=== PATIENT | male | born 1945 | race Caucasian/White ===

== ENCOUNTER 2019-06-26 10:21 | Emergency (ER) | payer OTHER ==
--- NOTE | 2019-06-26 11:39 | RAD REPORT ---
EXAM DESCRIPTION: CT - Head Brain Wo Cont - 06/26/2019 11:05 am CLINICAL HISTORY: Headache, history of fall with trauma to the left frontal and side of the head, samira carter has pain and pressure at the left, event happened 2 months earlier with persistent symptoms COMPARISON: None. TECHNIQUE: Axial 5 mm thick images of the head were obtained without IV contrast. All CT scans are performed using dose optimization technique as appropriate and may include automated exposure control or mA/KV adjustment according to patient size. FINDINGS: No acute or subacute intracranial hemorrhage process. No edema or shift of midline structu res. The patient has a mild underlying atrophy and chronic ischemic change. 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 No acute infarction. No cortical edema or sulcal effac ement. No abnormal extra-axial fluid collections. Ventricles are in proportion to the minimal amount of volume loss. Arterial and physiologic calcifications are present. Mastoid air cells and visualized portions of the paranasal sinuses are clear. No acute bony findings. IMPRESSION: No hemorrhage or other acute intracranial finding seen. Patient has mild atrophy and chr onic ischemic change.
--- NOTE | 2019-06-26 12:05 | ER ---
Nurse's Notes [facility] Name: Rogelio Machado Age: 74 yrs Sex: Male : 1945 Arrival Date: 06/26/2019 Time: 10:29 Bed 17 Private MD: Diagnosis: Postconcussional syndrome;Headache Presentation: 06/26 10:27 Presenting complaint: Patient states: Headaches for 2 months after falling and hitting head. Transition of care: patient was not received from another setting of care. Onset of symptoms was April 2019. Risk Assessment: Do you want to hurt yourself or someone else? Patient reports no desire to harm self or others. Initial Sepsis Screen: Does the patient meet any 2 criteria? No. Patient's initial sepsis screen is negative. Does the patient have a suspected source of infection? No. Patient's initial sepsis screen is negative. Care prior to arrival: None. 10:27 Method Of Arrival: Ambulatory aj 10:27 Acuity: [place] 4 aj Triage Assessment: 10:28 General: Appears in no apparent distress. comfortable, Behavior is calm, cooperative, aj appropriate for age. Pain: Denies pain. Neuro: Level of Consciousness is awake, alert, obeys commands, Oriented to person, place, time, situation, Appropriate for age. Respiratory: Airway is patent Respiratory effort is even, unlabored, Respiratory pattern is regular, symmetrical. Derm: Skin is intact, is healthy with good turgor, Skin is pink, warm \T\ dry. normal. Historical: - Allergies: 10:28 No Known Allergies; aj - Immunization history:: Adult Immunizations up to date. - Social history:: Smoking status: Patient/guardian denies using tobacco. - Ebola Screening: : Patient negative for fever greater than or equal to 101.5 degrees Fahrenheit, and additional compatible Ebola Virus Disease symptoms Patient denies exposure to infectious person Patient denies travel to an Ebola-affected area in the 21 days before illness onset No symptoms or risks identified at this time. Screenin:00 Abuse screen: Denies threats or abuse. Denies injuries from another. Nutritional hb screening: No deficits noted. Tuberculosis screening: No symptoms or risk factors identified. Fall Risk None identified. Assessment: 10:45 General: Appears in no apparent distress. Behavior is calm, cooperative. Pain: Pain hb currently is 5 out of 10 on a pain scale. Neuro: Level of Consciousness is awake, alert, obeys commands, Oriented to person, place, time, situation, Pupils are PERRLA, Reports headache. Cardiovascular: Capillary refill < 3 seconds Patient's skin is warm and dry. Respiratory: Airway is patent Respiratory effort is even, unlabored, Respiratory pattern is regular, symmetrical. GI: No signs and/or symptoms were reported involving the gastrointestinal system. : No signs and/or symptoms were reported regarding the genitourinary system. EENT: No signs and/or symptoms were reported regarding the EENT system. Derm: Skin is intact, is healthy with good turgor. Musculoskeletal: No signs and/or symptoms reported regarding the musculoskeletal system. 11:43 Reassessment: Patient appears in no apparent distress at this time. No changes from previously documented assessment. Patient and/or family updated on plan of care and expected duration. Pain level reassessed. Patient is alert, oriented x 3, equal unlabored respirations, skin warm/dry/pink. Vital Signs: 10:28 BP 153 / 80; Pulse 87; Resp 17; Temp 97.8; Pulse Ox 98% on R/A; Weight 78.93 kg; Height aj 6 ft. 2 in. (187.96 cm); 10:28 Body Mass Index 22.34 (78.93 kg, 187.96 cm) aj ED Course: 10:28 Triage completed. aj 10:28 Arm band placed on right wrist. Patient placed in an exam room. aj 10:29 Patient arrived in ED. as 10:35 Onel Ivey NP is PHCP. pm1 10:35 Paras Doll MD is Attending Physician. pm1 11:00 Patient has correct armband on for positive identification. Call light in reach. Side hb rails up X 1. 11:14 CT Head Brain wo Cont In Process Unspecified. EDMS 11:42 Kelly Coulter, BRITTNI is Primary Nurse. hb 12:28 No provider procedures requiring assistance completed. Patient did not have IV access hb during this emergency room visit. Administered Medications: No medications were administered Outcome: 12:04 Discharge ordered by . pm1 12:28 Discharged to home ambulatory. hb 12:28 Condition: stable 12:28 Discharge instructions given to patient, Instructed on discharge instructions, follow up and referral plans. medication usage, Demonstrated understanding of instructions, follow-up care, medications. 12:29 Patient left the ED. hb Signatures: Dispatcher [employer] EDMS Caty Barrow, BRITTNI RN Janeth Ferreira Patrick, NP REHABILITATION CASEWORKER pm1 Kelly Coulter RN RN hb
--- NOTE | 2019-06-26 12:06 | EDPHYS ---
Physician Documentation [facility] Name: Rogelio Machado Age: 74 yrs Sex: Male : 1945 Arrival Date: 06/26/2019 Time: 10:29 Bed 17 Private MD: ED Physician Paras Doll HPI: 06/26 10:50 This 74 yrs old Male presents to ER via Ambulatory with complaints of Fall pm1 Injury, Headache. 10:50 The patient complains of pain to the Headache, left eye and left restorationism. The patient pm1 describes the headache as aching. Onset: The symptoms/episode began/occurred 2 month(s) ago. Associated signs and symptoms: Pertinent positives: dizziness, Pertinent negatives: fever, nausea, paresthesias, vision changes, vomiting, weakness, neck pain. Headache History: Denies prior headaches. The symptoms are alleviated by over the counter pain medication, aspirin, the symptoms are aggravated by nothing. The patient has not experienced similar symptoms in the past. The patient has been recently seen by a physician: the patient's primary care provider, earlier today, Sent by [facility] for CT head . Patient was walking into fast food restaurant and tripped on the concrete parking block and hit the left side of his head against it. No LOC but was dazed. No neck pain. Fall occurred 2 months ago. Since fall injury, patient has had a headache and dizziness since then. Historical: - Allergies: 10:28 No Known Allergies; aj - Immunization history:: Adult Immunizations up to date. - Social history:: Smoking status: Patient/guardian denies using tobacco. - Ebola Screening: : Patient negative for fever greater than or equal to 101.5 degrees Fahrenheit, and additional compatible Ebola Virus Disease symptoms Patient denies exposure to infectious person Patient denies travel to an Ebola-affected area in the 21 days before illness onset No symptoms or risks identified at this time. ROS: 10:50 Constitutional: Negative for fever, chills, and weight loss, Eyes: Negative for injury, pm1 pain, redness, and discharge, ENT: Negative for injury, pain, and discharge, Neck: Negative for injury, pain, and swelling, Cardiovascular: Negative for chest pain, palpitations, and edema, Respiratory: Negative for shortness of breath, cough, wheezing, and pleuritic chest pain, Abdomen/GI: Negative for abdominal pain, nausea, vomiting, diarrhea, and constipation, Back: Negative for injury and pain, : Negative for injury, bleeding, discharge, and swelling, MS/Extremity: Negative for injury and deformity, Skin: Negative for injury, rash, and discoloration. 10:50 Neuro: Positive for dizziness, headache, Negative for numbness, tingling, weakness. Exam: 10:50 Constitutional: This is a well developed, well nourished patient who is awake, alert, pm1 and in no acute distress. Head/Face: Normocephalic, atraumatic. Eyes: Pupils equal round and reactive to light, extra-ocular motions intact. Lids and lashes normal. Conjunctiva and sclera are non-icteric and not injected. Cornea within normal limits. Periorbital areas with no swelling, redness, or edema. ENT: Nares patent. No nasal discharge, no septal abnormalities noted. Tympanic membranes are normal and external auditory canals are clear. Oropharynx with no redness, swelling, or masses, exudates, or evidence of obstruction, uvula midline. Mucous membranes moist. Neck: Trachea midline, no thyromegaly or masses palpated, and no cervical lymphadenopathy. Supple, full range of motion without nuchal rigidity, or vertebral point tenderness. No Meningismus. Chest/axilla: Normal chest wall appearance and motion. Nontender with no deformity. No lesions are appreciated. Cardiovascular: Regular rate and rhythm with a normal S1 and S2. No gallops, murmurs, or rubs. Normal PMI, no JVD. No pulse deficits. Respiratory: Lungs have equal breath sounds bilaterally, clear to auscultation and percussion. No rales, rhonchi or wheezes noted. No increased work of breathing, no retractions or nasal flaring. Abdomen/GI: Soft, non-tender, with normal bowel sounds. No distension or tympany. No guarding or rebound. No evidence of tenderness throughout. Back: No spinal tenderness. No costovertebral tenderness. Full range of motion. Skin: Warm, dry with normal turgor. Normal color with no rashes, no lesions, and no evidence of cellulitis. MS/ Extremity: Pulses equal, no cyanosis. Neurovascular intact. Full, normal range of motion. 10:50 Neuro: Orientation: is normal, Mentation: is normal, Cranial nerves: CN II- XII are normal as tested, Motor: is normal, moves all fours, strength is normal, strength is 5/5 in all extremities, Sensation: is normal, Gait: is steady, at a normal pace, without difficulty. Vital Signs: 10:28 BP 153 / 80; Pulse 87; Resp 17; Temp 97.8; Pulse Ox 98% on R/A; Weight 78.93 kg; Height aj 6 ft. 2 in. (187.96 cm); 10:28 Body Mass Index 22.34 (78.93 kg, 187.96 cm) MDM: 10:37 Patient medically screened. pm1 12:02 Data reviewed: vital signs. Data interpreted: Pulse oximetry: on room air is 98 %. pm1 Interpretation: normal. Counseling: I had a detailed discussion with the patient and/or guardian regarding: the historical points, exam findings, and any diagnostic results supporting the discharge/admit diagnosis, radiology results, the need for outpatient follow up, to return to the emergency department if symptoms worsen or persist or if there are any questions or concerns that arise at home. 12:16 ED course: Offered patient pain medication prescription. Patient refused, currently pm1 taking aspirin for pain. Mentioned that if his headache worsens he will go to the [place] clinic for pain medications. 06/26 10:44 Order name: CT Head Brain wo Cont; Complete Time: 11:55 pm1 Administered Medications: No medications were administered Disposition: 06/27 09:15 Co-signature as Attending Physician, Paras Doll MD I agree with the assessment and [facility] plan of care. Disposition: 06/26/19 12:04 Discharged to Home. Impression: Headache, Postconcussional syndrome. - Condition is Stable. - Discharge Instructions: General Headache Without Cause, Post-Concussion Syndrome. - Medication Reconciliation Form, Thank You Letter, Antibiotic Education, Prescription Opioid Use form. - Follow up: Emergency Department; When: As needed; Reason: Worsening of condition. Follow up: Private Physician; When: 2 - 3 days; Reason: Recheck today's complaints, Continuance of care, Re-evaluation by your physician. - Problem is new. - Symptoms have improved. Signatures: Dispatcher [employer] EDCaty Bay RN RN aj Anderson, Corey, MD MD cha Marinas, Patrick, ORDERING MACHINE OPERATOR ORDERING MACHINE OPERATOR pm1 Kelly Coulter, RN RN hb Corrections: (The following items were deleted from the chart) 06/26 12:19 12:16 ED course: Offered patient pain medication prescription. Patient refused, pm1 currently taking aspirin for pain. Mentioned that if his headache worsens he will go to the [place] clinic. pm1 12:29 12:04 06/26/2019 12:04 Discharged to Home. Impression: HeadachePostconcussional hb syndrome. Condition is Stable. Forms are Medication Reconciliation Form, Thank You Letter, Antibiotic Education, Prescription Opioid Use. Follow up: Emergency Department; When: As needed; Reason: Worsening of condition. Follow up: Private Physician; When: 2 - 3 days; Reason: Recheck today's complaints, Continuance of care, Re-evaluation by your physician. Problem is new. Symptoms have improved. pm1
== END 2019-06-26 12:29 | disposition home or self-care (01) ==
LOC: ER 10:21
DX: R51 Headache (principal); F07.81 Postconcussional syndrome
CPT/HCPCS: 70450; 99283

== ENCOUNTER 2019-11-15 11:55 | Emergency (ER) | payer OTHER ==
--- NOTE | 2019-11-15 13:08 | RAD REPORT ---
EXAM DESCRIPTION: RAD - Chest Single View - 11/15/2019 12:55 pm CLINICAL HISTORY: Abdominal pain, abdominal distention COMPARISON: None. TECHNIQUE: AP portable chest image was obtained 1247 hours . FINDINGS: Lungs are clear. Heart and vasculature are normal. No measurable pleural effusion and no p neumothorax. No acute bony abnormality seen. No acute aortic findings suspected. IMPRESSION: No acute cardiopulmonary process.
[2019-11-15 13:19] LABS: Absolute Lymphocytes (CBC) 1.1 K/uL (0.7-4.9); Basophils % 0.3 % (0-1.3); Hematocrit 50.4 % (39.6-49.0); Lymphocytes % 16.1 % (15.3-44.8); MPV 8.9 fL (7.6-11.3); RBC Red Blood Cell Count 5.15 M/uL (4.33-5.43)
[2019-11-15 13:23] LABS: Protime INR 1.01
[2019-11-15 13:35] LABS: Lipase 295 U/L (73-393); NT PRO-BNP 29 pg/mL (<450)
[2019-11-15 13:46] LABS: Urine Blood TRACE (NEG); Urine Glucose NEGATIVE (NEG); Urine Protein NEGATIVE (NEG); Urine Specific Gravity 1.025 (1.005-1.030)
--- NOTE | 2019-11-15 13:46 | EKG ---
Test Date: 2019-11-15 Test Time: 12:59:32 Veterans Services Specialist: DHEERAJ MEASUREMENT RESULTS: Intervals: Rate: 63 OR: 172 QRSD: 84 QT: 400 QTc: 409 [place]: P: 39 OR: 172 QRS: 52 T: 71 INTERPRETIVE STATEMENTS: Normal sinus rhythm Normal ECG Compared to ECG 11/30/2014 12:26:33 No significant changes Electronically Signed On 11-15-19 13:46:15 SOFTWARE LICENSING ANALYST by Leland Portillo
[2019-11-15] MEDS ORDERED: NA CHLORIDE 0.9% 500 ML ONE (13:57)
[2019-11-15 14:07] LABS: Urine Bacteria <20 /HPF (NONE SEEN); Urine Culture Reflex Order REFLEXED; Urine Mucus 2+ /HPF (NONE SEEN); Urine RBC <5 /HPF (NONE SEEN)
[2019-11-15 15:32] LABS: Potassium 4.4 mmol/L (3.5-5.1); Sodium Level 139 mmol/L (136-145)
[2019-11-15 15:35] LABS: Albumin 3.8 g/dL (3.4-5.0); BUN Blood Urea Nitrogen 18 mg/dL (7-18); Bicarbonate 28 mmol/L (21-32); Glucose Level 80 mg/dL (74-106); Magnesium 2.1 mg/dL (1.8-2.4)
[2019-11-15 15:37] LABS: Bilirubin Direct 0.4 mg/dL (0-0.2)
[2019-11-15 15:38] LABS: ALT/SGPT 15 U/L (12-78); AST/SGOT 18 U/L (15-37)
[2019-11-15 15:39] LABS: Bilirubin Total 1.4 mg/dL (0.2-1.0); Protein, Total 7.4 g/dL (6.4-8.2)
[2019-11-15 15:40] LABS: Alkaline Phosphatase 59 U/L (45-117)
[2019-11-15 15:45] LABS: Troponin (Emerg Dept Use Only) < 0.02 ng/mL (0.0-0.045)
--- NOTE | 2019-11-15 16:22 | RAD REPORT ---
EXAM DESCRIPTION: CT - Abdomen Pelvis Wo Contrast - 11/15/2019 4:05 pm CLINICAL HISTORY: Abdominal pain COMPARISON: None TECHNIQUE: Computed axial tomography of the abdomen and pelvis was obtained. Oral contrast was not r equested. Patient refused IV contrast. All CT scans are performed using dose optimization technique as appropriate and may include automated exposure control or mA/KV adjustment according to patient size. FINDINGS: The evaluation of solid organs, vessels and bowel is limited secondary to the lack of con trast administration. The liver, spleen, pancreas, adrenals and right kidney appear grossly normal. 1 millimeter nonobstructing left renal calculus. 18 millimeter low-density mass extends off of the le ft kidney. 5 millimeter isodense mass extends off of the left kidney. The appendix is normal. There is no evidence of diverticulitis. Moderate enlargement of the prostate gland Spondylosis involves lumbar spine resulting in spinal stenosis Atherosclerotic disease IMPRESSION: 1 millimeter nonobstructing left renal calculus. 18 millimeter low-density left renal mass is nonspecific without IV contrast. Nonemergent renal ultra sound recommended . 5 millimeter isodense mass can also be evaluated
--- NOTE | 2019-11-15 16:44 | ER ---
Nurse's Notes [facility] Name: Rogelio Machado Age: 74 yrs Sex: Male : 1945 Arrival Date: 11/15/2019 Time: 12:07 Bed 30 Private MD: Diagnosis: Constipation;Low back pain Presentation: 11/15 12:07 Presenting complaint: Patient states: blood in stool 2 days ago, unsure what color "it sr5 was glob" prior to that event reports being constipated x1 week. No BM since. Reports burning with urination, LBP x 2 weeks, and LEFT sided temporal OLIVER. Denies abd pain. Transition of care: patient was not received from another setting of care. Onset of symptoms was November 13, 2019. Risk Assessment: Do you want to hurt yourself or someone else? Patient reports no desire to harm self or others. Initial Sepsis Screen: Does the patient meet any 2 criteria? No. Patient's initial sepsis screen is negative. Care prior to arrival: None. 12:07 Method Of Arrival: EMS: [facility] sr5 12:07 Acuity: [place] 3 sr5 Triage Assessment: 12:11 General: Appears in no apparent distress. comfortable, Behavior is calm, cooperative. sr5 Pain: Complains of pain in LEFT sided temporal headache 3/10, Low back pain 8/10. Neuro: Level of Consciousness is awake, alert, obeys commands, Oriented to person, place, time, situation, Speech is normal, Facial symmetry appears normal, Reports headache. Cardiovascular: Patient's skin is warm and dry. Rhythm is sinus rhythm. Respiratory: Respiratory effort is even, unlabored, Respiratory pattern is regular, symmetrical, Breath sounds are clear bilaterally. GI: Abdomen is flat, non-distended, Bowel sounds present X 4 quads. Abd is soft and non tender X 4 quads. Reports constipation, bloody stool. : Reports burning with urination, LBP. Derm: treated for psoriasis, bilat legs red patches. Musculoskeletal: No signs and/or symptoms reported regarding the musculoskeletal system. Historical: - Allergies: 12:11 No Known Allergies; sr5 - Home Meds: 13:14 enalapril [Active]; levothyroxine [Active]; unknown blood pressure med [Active]; sr5 - PMHx: 13:14 Hypertension; Thyroid problem; CVA; sr5 14:20 internal hemorrhoids; colon polyp removal; sr5 - Social history:: Smoking status: Patient uses tobacco products, chewing tobacco. - Ebola Screening: : Patient negative for fever greater than or equal to 101.5 degrees Fahrenheit, and additional compatible Ebola Virus Disease symptoms. Screenin:38 Abuse screen: Denies threats or abuse. Nutritional screening: No deficits noted. sr5 Tuberculosis screening: No symptoms or risk factors identified. Fall Risk Fall in past 12 months (25 points). Secondary diagnosis (15 points) IV access (20 points). Ambulatory Aid- Crutches/Cane/Walker (15 pts). Gait- Weak (10 pts.). Mental Status- Oriented to own ability (0 pts). Total Delatorre Fall Scale indicates High Risk Score (45 or more points). Fall prevention measures have been instituted. Side Rails Up X 2 As available patient and family educated on Fall Prevention Program and Strategies. Assessment: 13:14 Reassessment: Pt continues to be fully AA\\T\\Ox4, equal unlabored resp, on room air, skin sr5 warm/dry/nc, SR on monitor. Awaiting test results. Attempting UA collection via urinal. No further change in pt condition. 16:24 Reassessment: No change in patient condition. AA\\T\\Ox4, equal unlabored resp, skin sr5 warm/dry/nc, SB on monitor, HR 55, returned from CT. Pt had refused IV contrast thinking that it was for an MRI, provider notified of patient's willingness to have IV contrast if needed now. No new orders at this time. 16:58 Reassessment: Pt prepped for discharge. Continues to be fully AA\\T\\Ox4, equal unlabored sr5 resp, skin warm/dry/nc, IV site dc'd intact, awaiting ride. Vital Signs: 12:11 BP 144 / 74; Pulse 71; Resp 16; Pulse Ox 99% on R/A; Weight 81.65 kg (R); Height 6 ft. sr5 2 in. (187.96 cm); Pain 8/10; 13:09 BP 134 / 76; Pulse 63; Resp 18; Temp 98.6; Pulse Ox 97% on R/A; sr5 14:38 BP 119 / 73; Pulse 58; Resp 16; Pulse Ox 100% on R/A; sr5 16:24 BP 130 / 72; Pulse 54; Resp 14; Pulse Ox 100% on R/A; sr5 16:58 BP 133 / 67; Pulse 60; Resp 18; Temp 98.7(O); Pulse Ox 100% on R/A; Pain 4/10; sr5 12:11 Body Mass Index 23.11 (81.65 kg, 187.96 cm) sr5 12:11 LBP, headache sr5 Vitals: 13:09 Cardiac Rhythm Assessment Sinus rhythm. sr5 14:38 Cardiac Rhythm Assessment Sinus eric. sr5 ED Course: 12:07 Patient arrived in ED. sr5 12:10 Triage completed. sr5 12:11 Arm band placed on right wrist. Patient placed in an exam room, on a stretcher, on sr5 manager cardiac cath, on pulse oximetry. 12:26 Chad Florian, IVONNE [facility]. la1 12:26 Elijah Mitchell MD is Attending Physician. la1 12:57 XRAY Chest (1 view) In Process Unspecified. EDMS 13:00 Initial lab(s) drawn, by me, sent to lab. EKG done, by development technologist. reviewed by Chad Florian jb1 BUNNY-Michelle T\\T\\S collected, blood band applied to patient. Inserted saline lock: 22 gauge in right forearm, using aseptic technique. Blood collected. 13:01 Alfie Prather, RN is Primary Nurse. sr5 14:38 Patient has correct armband on for positive identification. Placed in gown. Bed in low sr5 position. Call light in reach. Side rails up X 1. monitor tech on. Pulse ox on. NIBP on. Warm blanket given. Pillow given. 14:38 Served as a research lab assistant during rectal exam. sr5 16:08 Abdomen In Process Unspecified. EDMS 16:58 Awaiting transportation. sr5 16:58 IV discontinued, intact, bleeding controlled, No redness/swelling at site. Pressure sr5 dressing applied. Administered Medications: 13:53 Drug: NS 0.9% 500 ml Route: IV; Rate: bolus; Site: right antecubital; sr5 14:19 Follow up: IV Status: Completed infusion; IV Intake: 500ml sr5 16:55 Drug: Robaxin 500 mg Route: PO; sr5 Intake: 14:19 IV: 500ml; Total: 500ml. sr5 Outcome: 16:43 Discharge ordered by MD. riddle 17:07 Patient left the ED. sr5 Signatures: Dispatcher [employer] Nick Garza [email or web address] Chad Florian, PETROPHYSICAL ENGINEER-C PETROPHYSICAL ENGINEER-Cla1 Alfie Prather, RN RN sr5
--- NOTE | 2019-11-15 16:44 | EDPHYS ---
Physician Documentation [facility] Name: Rogelio Machado Age: 74 yrs Sex: Male : 1945 Arrival Date: 11/15/2019 Time: 12:07 Bed 30 Private MD: ED Physician Elijah Mitchell HPI: 11/15 12:50 This 74 yrs old Male presents to ER via EMS with complaints of constipation. la1 12:50 Onset: The symptoms/episode began/occurred 1 week(s) ago. The symptoms do not radiate. la1 Associated signs and symptoms: Pertinent positives: blood in stools, Pertinent negatives: nausea and vomiting, chest pain, diarrhea, dysuria, fever, headache, hematuria, nausea, vomiting, vomiting blood. The patient has not experienced similar symptoms in the past. pt reports that he has been constipated for the last week and had a BM two days ago that looked like it had blood in it. Denies abd pain, has never had a problem like this before. Historical: - Allergies: 12:11 No Known Allergies; sr5 - Home Meds: 13:14 enalapril [Active]; levothyroxine [Active]; unknown blood pressure med [Active]; sr5 - PMHx: 13:14 Hypertension; Thyroid problem; CVA; sr5 14:20 internal hemorrhoids; colon polyp removal; sr5 - Social history:: Smoking status: Patient uses tobacco products, chewing tobacco. - Ebola Screening: : Patient negative for fever greater than or equal to 101.5 degrees Fahrenheit, and additional compatible Ebola Virus Disease symptoms. ROS: 12:52 Constitutional: Negative for fever, chills, and weight loss, Eyes: Negative for injury, la1 pain, redness, and discharge, ENT: Negative for injury, pain, and discharge, Neck: Negative for injury, pain, and swelling, Cardiovascular: Negative for chest pain, palpitations, and edema, Respiratory: Negative for shortness of breath, cough, wheezing, and pleuritic chest pain. 12:52 Back: Negative for injury and pain, : Negative for injury, bleeding, discharge, and swelling, MS/Extremity: Negative for injury and deformity, Neuro: Negative for headache, weakness, numbness, tingling, and seizure. 12:52 Abdomen/GI: Positive for rectal bleeding, Negative for abdominal pain, nausea and vomiting, nausea, vomiting, and diarrhea, dysphagia, hematemesis, black/tarry stool, rectal pain. Exam: 12:53 Constitutional: This is a well developed, well nourished patient who is awake, alert, la1 and in no acute distress. Head/Face: Normocephalic, atraumatic. Eyes: Pupils equal round and reactive to light, extra-ocular motions intact. Periorbital areas with no swelling, redness, or edema. ENT: Mucous membranes moist. Neck: No Meningismus. Chest/axilla: Normal chest wall appearance and motion. Nontender with no deformity. No lesions are appreciated. Cardiovascular: Regular rate and rhythm with a normal S1 and S2. No gallops, murmurs, or rubs. Normal PMI, no JVD. No pulse deficits. Respiratory: Lungs have equal breath sounds bilaterally, clear to auscultation No rales, rhonchi or wheezes noted. No increased work of breathing, no retractions or nasal flaring. 12:53 Back: No spinal tenderness. No costovertebral tenderness. pain with ROM of back Skin: Warm, dry with normal turgor. Normal color with no rashes, no lesions, and no evidence of cellulitis. 12:53 Abdomen/GI: Inspection: abdomen appears normal, Bowel sounds: normal, Palpation: abdomen is soft and non-tender, in all quadrants, Indicators: McBurney's point is not tender, Killian's sign is negative, Rovsing's sign is negative, Obturator sign is negative, Psoas sign is negative. 14:38 Abdomen/GI: Rectal exam: is unremarkable, Prostate: normal, rectal tone normal, Stool: la1 brown, guaiac negative, hemorrhoid(s), are not appreciated, without bleeding, without inflammation, without thrombosis, without pain. Vital Signs: 12:11 BP 144 / 74; Pulse 71; Resp 16; Pulse Ox 99% on R/A; Weight 81.65 kg (R); Height 6 ft. sr5 2 in. (187.96 cm); Pain 8/10; 13:09 BP 134 / 76; Pulse 63; Resp 18; Temp 98.6; Pulse Ox 97% on R/A; sr5 14:38 BP 119 / 73; Pulse 58; Resp 16; Pulse Ox 100% on R/A; sr5 16:24 BP 130 / 72; Pulse 54; Resp 14; Pulse Ox 100% on R/A; sr5 16:58 BP 133 / 67; Pulse 60; Resp 18; Temp 98.7(O); Pulse Ox 100% on R/A; Pain 4/10; sr5 12:11 Body Mass Index 23.11 (81.65 kg, 187.96 cm) sr5 12:11 LBP, headache sr5 MDM: 12:26 Patient medically screened. la1 15:15 ED course: delay in imaging study due to hemolyzed blood specimen . la1 16:41 Data reviewed: vital signs, nurses notes, lab test result(s), EKG, radiologic studies, la1 I have discussed the patient's presentation/case with the attending Emergency Department Physician; and as a result, I will discharge patient. Data interpreted: Pulse oximetry: on room air is 100 %. Interpretation: normal. Counseling: I had a detailed discussion with the patient and/or guardian regarding: the historical points, exam findings, and any diagnostic results supporting the discharge/admit diagnosis, lab results, radiology results, the need for outpatient follow up, a family practitioner, a dust operator, to return to the emergency department if symptoms worsen or persist or if there are any questions or concerns that arise at home. Special discussion: Based on the patient's Hx, exam, and Dx evaluation, there is no indication for emergent surgery or inpatient Tx. It is understood by the patient/guardian that if the Sx's persist or worsen they need to return immediately for re-evaluation. I discussed with the patient the need to follow-up with the PCP/specialist for the noted incidental finding on X-ray/CT scanning. 11/15 12:40 Order name: Troponin (emerg Dept Use Only); Complete Time: 15:48 11/15 12:40 Order name: Basic Metabolic Panel; Complete Time: 15:48 11/15 12:40 Order name: CBC with Diff; Complete Time: 13:31 11/15 12:40 Order name: LFT's; Complete Time: 15:48 la11/15 12:40 Order name: Magnesium; Complete Time: 15:48 11/15 12:40 Order name: NT PRO-BNP; Complete Time: 13:40 la1 11/15 12:40 Order name: PT-INR; Complete Time: 13:31 [facility] 11/15 12:40 Order name: Lipase; Complete Time: 13:40 [facility] 11/15 13:30 Order name: Urine Microscopic Only; Complete Time: 14:11 [facility] 11/15 13:45 Order name: Urine Dipstick--Ancillary (enter results) 11/15 13:47 Order name: Urine Dipstick-Ancillary [facility] 11/15 14:11 Order name: Urine Culture [facility] 11/15 12:40 Order name: XRAY Chest (1 view); Complete Time: 13:31 [facility] 11/15 12:40 Order name: EKG; Complete Time: 12:41 [facility] 11/15 12:40 Order name: Cardiac monitoring; Complete Time: 13:00 [facility] 11/15 12:40 Order name: EKG - Nurse/Tech; Complete Time: 13:00 [facility] 11/15 12:40 Order name: IV Saline Lock; Complete Time: 13:00 [facility] 11/15 12:40 Order name: Labs collected and sent; Complete Time: 13:00 [facility] 11/15 12:40 Order name: O2 Per Protocol; Complete Time: 13:00 [facility] 11/15 12:40 Order name: O2 Sat Monitoring; Complete Time: 13:00 [facility] 11/15 14:38 Order name: Occult Blood--Ancillary; Complete Time: 15:48 11/15 15:03 Order name: Labs - recollect needed; Complete Time: 15:23 11/15 16:02 Order name: Abdomen ; Complete Time: 16:28 EDMS Administered Medications: 13:53 Drug: NS 0.9% 500 ml Route: IV; Rate: bolus; Site: right antecubital; sr5 14:19 Follow up: IV Status: Completed infusion; IV Intake: 500ml sr5 16:55 Drug: Robaxin 500 mg Route: PO; sr5 Disposition: 17:51 Co-signature as Attending Physician, Elijah Mitchell MD I agree with the assessment and kdr plan of care. Disposition: 11/15/19 16:43 Discharged to Home. Impression: Constipation, Low back pain. - Condition is Stable. - Discharge Instructions: Abdominal Pain, Adult, Back Pain, Adult, Constipation, Adult, Musculoskeletal Pain, Back Pain, Adult, [id number], Back Exercises, [id number]. - Prescriptions for Miralax 17 gram/dose Oral - take 1 packet by ORAL route once daily dilute powder in 8 ounces of water or juice; 1 box. - Medication Reconciliation Form, Thank You Letter form. - Follow up: Private Physician; When: 2 - 3 days; Reason: Recheck today's complaints, Re-evaluation by your physician. Follow up: Emergency Department; When: As needed; Reason: Worsening of condition. - Problem is new. - Symptoms are unchanged. Signatures: Dispatcher [employer] EDMS JeannePreeti Elijah Leiva MD MD kdr Chad Florian, REGISTERED CLINICAL DIETITIAN-C REGISTERED CLINICAL DIETITIAN-Cla1 Alfie Prather RN RN sr5 Corrections: (The following items were deleted from the chart) 14:04 12:41 TYPE AND SCREEN+BB.LAB.BRZ ordered. EDMT EDMS 14:12 14:07 Type and Screen ordered. EDMT EDMT 14:16 13:58 Labs - recollect needed ordered. bd sr5 16:02 14:16 Abdomen Pelvis W Con+CT.RAD.BRZ ordered. EDMT EDMS 17:07 16:43 11/15/2019 16:43 Discharged to Home. Impression: Constipation; Low back pain. sr5 Condition is Stable. Forms are Medication Reconciliation Form, Thank You Letter, Antibiotic Education, Prescription Opioid Use. Follow up: Private Physician; When: 2 - 3 days; Reason: Recheck today's complaints, Re-evaluation by your physician. Follow up: Emergency Department; When: As needed; Reason: Worsening of condition. Problem is new. Symptoms are unchanged. la1
[2019-11-15] MEDS ORDERED: METHOCARBAMOL 500 MG TAB ONE (16:52)
[2019-11-15 17:17] VITALS: O2SAT 100
[2019-11-15 17:20] VITALS: BP 133/67; TEMP 98.7
== END 2019-11-15 17:07 | disposition home or self-care (01) ==
LOC: ER 11:55
DX: K59.00 Constipation, unspecified (principal); M54.5 Low back pain; I10 Essential (primary) hypertension; E07.9 Disorder of thyroid, unspecified; F17.220 Nicotine dependence, chewing tobacco, uncomplicated
CPT/HCPCS: 93005; 87088; 85025; 87086; 80048; 36415; 83735; 85610; 80076; 82272; 84484; 83690; 83880; 74176; 71045; 99285; J7040; 81003; 81015

== ENCOUNTER 2025-08-08 23:57 | Emergency (ER) | payer OTHER ==
[2025-08-09 00:49] LABS: Absolute Lymphocytes (CBC) 1.5 K/uL (0.7-4.9); Hematocrit 19.8 % (39.6-49.0); Hemoglobin 6.3 g/dL (13.6-17.9); MCH 29.6 pg (27.0-35.0); MCHC 32.0 g/dL (32.0-36.0); MCV 92.5 fL (80-100); MPV 8.6 fL (7.6-11.3); Nucleated RBC Absolute Count 0.0 (0-0); Nucleated Red Blood Cells % 0.1 % (0-0); Percent Reticulocyte Count 2.07 % (0.4-2.05); RBC Red Blood Cell Count 2.14 M/uL (4.33-5.43); White Blood Count 4.90 thou/uL (4.3-10.9)
[2025-08-09 01:12] LABS: AST/SGOT 17 U/L (15-37); Albumin 2.4 g/dL (3.4-5.0); Albumin/Globulin Ratio 0.4 (1.1-1.8); Alkaline Phosphatase 68 U/L (45-117); Anion Gap 6.9 mEq/L (5.0-15.0); BUN Blood Urea Nitrogen 21 mg/dL (7-18); Globulin 6.2 g/dL (2.3-3.5); Glucose Level 88 mg/dL (74-106); Lipase 69 U/L (13-75); Potassium 3.9 mEq/L (3.5-5.1)
[2025-08-09 01:15] LABS: ALT/SGPT < 14 U/L (16-61)
[2025-08-09 01:39] LABS: Ferritin 990.6 ng/mL (26-388); Transferrin 134 mg/dL (200-360)
[2025-08-09] MEDS ORDERED: NA CHLORIDE 0.9% 500 ML ONE (02:57)
--- NOTE | 2025-08-09 07:23 | ER ---
Nurse's Notes [facility] Name: Rogelio Machado Age: 80 yrs Sex: Male : 1945 Arrival Date: 08/08/2025 Time: 23:57 Bed 15 Private MD: Diagnosis: ANEMIA REQUIRING TRANSFUSION Presentation: 08/09 00:16 Chief complaint: EMS states: BIBA fron snf for low H\T\H, pt has no complaints. kt5 Coronavirus screen: unknown. Ebola Screen: No symptoms or risks identified at this time. Initial Sepsis Screen: Does the patient meet any 2 criteria? No. Patient's initial sepsis screen is negative. Does the patient have a suspected source of infection? No. Patient's initial sepsis screen is negative. Risk Assessment: Do you want to hurt yourself or someone else? Patient reports no desire to harm self or others. Onset of symptoms was August 08, 2025 at 09:00. Care prior to arrival: IV initiated. 20 GA, in the left antecubital area. 00:16 Method Of Arrival: EMS: [facility] kt5 00:16 Acuity: [place] 2 kt5 Triage Assessment: 00:21 General: Appears in no apparent distress. slender, Behavior is calm, cooperative, kt5 appropriate for age. Pain: Denies pain. Neuro: No deficits noted. Mcqueen Agitation-Sedation Scale (RASS): 0 - Alert and Calm Level of Consciousness is awake, alert, obeys commands, confused, Oriented to person, situation. Cardiovascular: No deficits noted. Denies chest pain, Heart tones S1 S2 present Capillary refill < 3 seconds Clubbing of nail beds is absent JVD is absent. Respiratory: No deficits noted. Airway is patent Trachea midline Respiratory effort is even, Respiratory pattern is regular. : No deficits noted. No signs and/or symptoms were reported regarding the genitourinary system. Derm: No deficits noted. No signs and/or symptoms reported regarding the dermatologic system. Skin is fragile, is thin, has lesions on wound noted to lower left calf, ppp, cms intact, full rom Skin is dry, Skin is normal. Musculoskeletal: No deficits noted. No signs and/or symptoms reported regarding the musculoskeletal system. Historical: - Home Meds: 00:21 enalapril [Active]; levothyroxine [Active]; UNKNOWN BLOOD PRESSURE MED [Active]; kt5 - PMHx: 00:21 colon polyp removal; Hypertension; CVA; Thyroid problem; internal hemorrhoids; kt5 - Immunization history:: unknown. - Infectious Disease History:: Denies. - Social history:: Smoking status: unknown. Screenin:25 [facility] ED Fall Risk Assessment (Adult) History of falling in the last 3 months, kt5 including since admission No falls in past 3 months (0 pts) Confusion or Disorientation Yes (5 pts) Intoxicated or Sedated No (0 pts) Impaired Gait Yes (1 pt) Mobility Assist Device Used Yes (1 pt) Altered Elimination Yes (1 pt) Score/Fall Risk Level 3 or more points = High Risk Oriented to surroundings, Maintained a safe environment, Hourly rounding (assess needs \T\ fall precautionary measures) done. Abuse screen: Denies threats or abuse. Nutritional screening: No deficits noted. Tuberculosis screening: No symptoms or risk factors identified. Assessment: 00:25 General: see triage. kt5 01:23 Reassessment: Patient appears in no apparent distress at this time. Patient and/or kt5 family updated on plan of care and expected duration. Pain level reassessed. Patient is alert, oriented x 3, equal unlabored respirations, skin warm/dry/pink. Patient denies pain at this time. 02:06 Reassessment: Patient appears in no apparent distress at this time. Patient and/or kt5 family updated on plan of care and expected duration. Pain level reassessed. Patient is alert, oriented x 3, equal unlabored respirations, skin warm/dry/pink. Patient denies pain at this time. Patient states symptoms have improved. 03:04 Reassessment: Patient appears in no apparent distress at this time. Patient and/or kt5 family updated on plan of care and expected duration. Pain level reassessed. Patient is alert, oriented x 3, equal unlabored respirations, skin warm/dry/pink. pt sitting up in bed eating and drinking w/o complications Patient denies pain at this time. Patient states symptoms have improved. 03:35 General: pt sitting up in bed eating and drinking w/o complications. kt5 04:00 General: blood transfusion started, 2 nurse check off complete, pt on all monitors, kt5 v/s/s, will monitor close. 04:10 Reassessment: Patient appears in no apparent distress at this time. Patient and/or kt5 family updated on plan of care and expected duration. Pain level reassessed. Patient is alert, oriented x 3, equal unlabored respirations, skin warm/dry/pink. Patient denies pain at this time. Patient states feeling better. Patient states symptoms have improved. 04:15 Reassessment: Patient appears in no apparent distress at this time. Patient and/or kt5 family updated on plan of care and expected duration. Pain level reassessed. Patient is alert, oriented x 3, equal unlabored respirations, skin warm/dry/pink. Patient denies pain at this time. Patient states feeling better. Patient states symptoms have improved. 05:04 Reassessment: Patient appears in no apparent distress at this time. Patient and/or kt5 family updated on plan of care and expected duration. Pain level reassessed. Patient is alert, oriented x 3, equal unlabored respirations, skin warm/dry/pink. Patient denies pain at this time. Patient states feeling better. Patient states symptoms have improved. 06:03 Reassessment: Patient appears in no apparent distress at this time. Patient and/or kt5 family updated on plan of care and expected duration. Pain level reassessed. Patient is alert, oriented x 3, equal unlabored respirations, skin warm/dry/pink. Patient denies pain at this time. Patient states feeling better. Patient states symptoms have improved. 06:30 Reassessment: Patient appears in no apparent distress at this time. Patient and/or kt5 family updated on plan of care and expected duration. Pain level reassessed. Patient is alert, oriented x 3, equal unlabored respirations, skin warm/dry/pink. Patient denies pain at this time. Patient states feeling better. Patient states symptoms have improved. 07:00 General: blood transfusion complete pt tolerated well. kt5 07:00 General: report given to alayna roy, all questions answered. kt5 08:15 Reassessment: Patient appears in no apparent distress at this time. Patient and/or db family updated on plan of care and expected duration. Pain level reassessed. Patient is alert, oriented x 3, equal unlabored respirations, skin warm/dry/pink. Neuro: Level of Consciousness is awake, alert, obeys commands, Oriented to person, place, time, situation. 08:49 Reassessment: REPORT CALLED TO LIAN AT [facility]. [facility] WILL HAVE [facility] db COME PICK PT UP. 10:00 Reassessment: Patient appears in no apparent distress at this time. Patient and/or db family updated on plan of care and expected duration. Pain level reassessed. Patient is alert, oriented x 3, equal unlabored respirations, skin warm/dry/pink. 11:02 Reassessment: Patient appears in no apparent distress at this time. Patient and/or db family updated on plan of care and expected duration. Pain level reassessed. Patient is alert, oriented x 3, equal unlabored respirations, skin warm/dry/pink. Vital Signs: 00:16 BP 146 / 70; Pulse 65; Resp 18; Temp 98.3; Pulse Ox 100% ; Pain 0/10; kt5 01:23 BP 146 / 70; Pulse 67; Resp 16; Pulse Ox 99% ; kt5 02:06 BP 143 / 64; Pulse 64; Resp 18; Pulse Ox 100% ; kt5 03:04 BP 160 / 66; Pulse 57; Resp 18; Pulse Ox 99% ; kt5 04:00 BP 165 / 65; Pulse 57; Resp 16 S; Temp 98.2; Pulse Ox 99% on R/A; Pain 0/10; kt5 04:05 BP 160 / 70; Pulse 56; Resp 16 S; Temp 98.3; Pulse Ox 100% on R/A; Pain 0/10; kt5 04:10 BP 162 / 75; Pulse 57; Resp 18 S; Temp 98.3; Pulse Ox 100% on R/A; Pain 0/10; kt5 04:15 BP 153 / 67; Pulse 59; Resp 18; Temp 98; Pulse Ox 100% ; Pain 0/10; kt5 04:30 BP 158 / 63; Pulse 57; Resp 18; Temp 98.3; Pulse Ox 100% ; Pain 0/10; kt5 05:30 BP 154 / 84; Pulse 57; Resp 16; Temp 98.2; Pulse Ox 100% ; Pain 0/10; kt5 06:00 BP 162 / 56; Pulse 58; Resp 16; Temp 98; Pulse Ox 100% ; Pain 0/10; kt5 06:30 BP 167 / 72; Pulse 62; Resp 18 S; Temp 98; Pulse Ox 100% on R/A; Pain 0/10; kt5 07:00 BP 165 / 72; Pulse 60; Resp 16; Temp 98.1; Pulse Ox 100% ; Pain 0/10; kt5 07:30 BP 147 / 74; Pulse 57; Resp 16; Pulse Ox 100% on R/A; db 08:30 BP 151 / 72; Pulse 52; Resp 16; Pulse Ox 98% ; db 09:30 BP 166 / 62; Pulse 54; Resp 16; Pulse Ox 100% ; db 10:30 BP 155 / 76; Pulse 64; Resp 16; Pulse Ox 97% ; db 00:16 Pain Scale: Adult kt5 04:00 Pain Scale: Adult kt5 04:05 Pain Scale: Adult kt5 04:10 Pain Scale: Adult kt5 04:15 Pain Scale: Adult kt5 04:30 Pain Scale: Adult kt5 05:30 Pain Scale: Adult kt5 06:00 Pain Scale: Adult kt5 06:30 Pain Scale: Adult kt5 07:00 Pain Scale: Adult kt5 ED Course: 00:09 Patient arrived in ED. kt5 00:09 Acosta Rivas DO is Attending Physician. tt7 00:16 Amanda Marques, RN is Primary Nurse. kt5 00:20 Triage completed. kt5 00:21 Arm band placed on right wrist. kt5 00:25 Patient has correct armband on for positive identification. Fall risk band placed. kt5 Placed in gown. Bed in low position. Call light in reach. Side rails up X2. Client placed on continuous cardiac and pulse oximetry monitoring. NIBP monitoring applied. channel account manager on. Door closed. Noise minimized. Warm blanket given. Pillow given. 00:25 Maintain EMS IV. Dressing intact. Good blood return noted. Site clean \T\ dry. Gauge \T\ kt 5 site: 20 lac. Flushed with 10 mL NS. 00:39 Lactate w/ 2H reflex if indic. Sent. 00:39 Iron Level Sent. 00:39 Ferritin Sent. 00:39 Retic Count Sent. 00:39 TRANSFERRIN SAT/IRON BINDING Sent. 00:39 Type And Screen Sent. 00:40 CBC with Diff Sent. 00:40 CMP Sent. 00:40 Lipase Sent. kt5 05:11 Packed RBCs (Additional Unit) Sent. 09:36 [facility] called and will be here to slat pickler pt after 11. sp 11:02 Provided Education on: DISCHARGE AND FOLLOWUP. db 11:02 No provider procedures requiring assistance completed. IV discontinued, intact, db bleeding controlled, No redness/swelling at site. Administered Medications: 07:25 Drug: Calcium Gluconate IVPB 2 grams IVPB once over 60 mins; (mix in NS 100 mL) Route: db IVPB; Infused Over: 60 mins; Site: left antecubital; 08:30 Follow up: Response: No adverse reaction; IV Status: Completed infusion; IV Intake: db 100ml Medication: 00:25 VIS not applicable for this client. kt5 Intake: 08:30 IV: 100ml; Total: 100ml. db Outcome: :22 Discharge ordered by . tt7 11:02 Discharged to snf. Report called to LIAN. [facility] ARRIVED FOR PATIENT db TRANSFER 11:02 Condition: stable 11:02 Discharge instructions given to snf, Instructed on discharge instructions, follow up and referral plans. 11:05 Patient left the ED. db Signatures: Lata Egan Danielle, RN RN Amanda Smith, RN RN kt5 Acosta Rivas DO DO tt7 Corrections: (The following items were deleted from the chart) 01:27 01:23 BP 109 / 60; Pulse 60bpm; Resp 16bpm; Pulse Ox 99%; kt5 kt5 05:07 05:00 BP 158 / 63; Pulse 57bpm; Resp 18bpm; Pulse Ox 100%; Temp 98.3F; Pain 0/10, kt5 Adult; kt5 06:13 02:30 ABO/RH typing drawn and sent. kt5 EDMS 06:13 02:30 Antibody Screen drawn and sent. kt5 EDMS 06:26 06:03 BP 162 / 56; Pulse 59bpm; Resp 18bpm; Spontaneous; Pulse Ox 99% RA; Temp 98.2F; kt5 Pain 0/10, Adult; kt5
--- NOTE | 2025-08-09 07:23 | EDPHYS ---
Physician Documentation [facility] Name: Rogelio Machado Age: 80 yrs Sex: Male : 1945 Arrival Date: 08/08/2025 Time: 23:57 Bed 15 Private MD: ED Physician Acosta Rivas HPI: 08/09 04:05 This 80 yrs old Male presents to ER via EMS with complaints of anemia on outpatient lab.tt7 04:06 Outpatient labs drawn on 08/08 demonstrated anemia with hemoglobin 6.2, patient has tt7 history of chronic anemia and past GI bleed, currently he has no symptoms, denies lightheadedness, fatigue, shortness of breath, abdominal pain, hematemesis, hematochezia, melena. Historical: - Home Meds: 00:21 enalapril [Active]; levothyroxine [Active]; UNKNOWN BLOOD PRESSURE MED [Active]; kt5 - PMHx: 00:21 colon polyp removal; Hypertension; CVA; Thyroid problem; internal hemorrhoids; kt5 - Immunization history:: unknown. - Infectious Disease History:: Denies. - Social history:: Smoking status: unknown. ROS: 04:05 Constitutional: negative for fever. Cardiovascular: negative for chest pain. tt7 Respiratory: negative for shortness of breath. Abdomen/GI: negative for abdominal pain, nausea, vomiting, diarrhea. Skin: negative for rash. Neuro: negative for focal weakness. Exam: 04:06 Constitutional: vital signs reviewed, well appearing. Head/Face: normocephalic, tt7 atraumatic. Eyes: no conjunctival injection, anicteric sclerae. ENT: mucus membranes moist. Neck: trachea midline, no JVD, no meningismus. Chest/axilla: normal chest wall appearance and motion, nontender, no crepitus. Cardiovascular: regular rate and rhythm, no murmurs, no rubs, no lower extremity edema. Respiratory: normal respiratory effort, no accessory muscle use, lungs CTAB. Abdomen/GI: soft, nondistended, nontender, no guarding or rebound, negative Killian's sign, no McBurney point tenderness. Back: normal ROM. Skin: warm, dry, intact, normal turgor, normal color, no rash. MS/ Extremity: normal ROM of extremities, no gross deformities. Neuro: alert and oriented with appropriate mental status, normal speech, follows commands, no focal neurologic deficits. Psych: appropriate mood and affect. Vital Signs: 00:16 BP 146 / 70; Pulse 65; Resp 18; Temp 98.3; Pulse Ox 100% ; Pain 0/10; kt5 01:23 BP 146 / 70; Pulse 67; Resp 16; Pulse Ox 99% ; kt5 02:06 BP 143 / 64; Pulse 64; Resp 18; Pulse Ox 100% ; kt5 03:04 BP 160 / 66; Pulse 57; Resp 18; Pulse Ox 99% ; kt5 04:00 BP 165 / 65; Pulse 57; Resp 16 S; Temp 98.2; Pulse Ox 99% on R/A; Pain 0/10; kt5 04:05 BP 160 / 70; Pulse 56; Resp 16 S; Temp 98.3; Pulse Ox 100% on R/A; Pain 0/10; kt5 04:10 BP 162 / 75; Pulse 57; Resp 18 S; Temp 98.3; Pulse Ox 100% on R/A; Pain 0/10; kt5 04:15 BP 153 / 67; Pulse 59; Resp 18; Temp 98; Pulse Ox 100% ; Pain 0/10; kt5 04:30 BP 158 / 63; Pulse 57; Resp 18; Temp 98.3; Pulse Ox 100% ; Pain 0/10; kt5 05:30 BP 154 / 84; Pulse 57; Resp 16; Temp 98.2; Pulse Ox 100% ; Pain 0/10; kt5 06:00 BP 162 / 56; Pulse 58; Resp 16; Temp 98; Pulse Ox 100% ; Pain 0/10; kt5 06:30 BP 167 / 72; Pulse 62; Resp 18 S; Temp 98; Pulse Ox 100% on R/A; Pain 0/10; kt5 07:00 BP 165 / 72; Pulse 60; Resp 16; Temp 98.1; Pulse Ox 100% ; Pain 0/10; kt5 07:30 BP 147 / 74; Pulse 57; Resp 16; Pulse Ox 100% on R/A; db 08:30 BP 151 / 72; Pulse 52; Resp 16; Pulse Ox 98% ; db 09:30 BP 166 / 62; Pulse 54; Resp 16; Pulse Ox 100% ; db 10:30 BP 155 / 76; Pulse 64; Resp 16; Pulse Ox 97% ; db 00:16 Pain Scale: Adult kt5 04:00 Pain Scale: Adult kt5 04:05 Pain Scale: Adult kt5 04:10 Pain Scale: Adult kt5 04:15 Pain Scale: Adult kt5 04:30 Pain Scale: Adult kt5 05:30 Pain Scale: Adult kt5 06:00 Pain Scale: Adult kt5 06:30 Pain Scale: Adult kt5 07:00 Pain Scale: Adult kt5 MDM: 00:09 Medical Screening Exam initiated tt7 04:25 Differential Diagnosis Iron deficiency anemia, anemia of chronic disease, acute blood tt7 loss anemia, other anemia, acute renal failure, acute liver failure, GI hemorrhage. Data reviewed: vital signs, nurses notes, [facility] records, diagnostic data from outside facility, CBC, lab test result(s), CBC, electrolytes, hepatic panel. Historians other than the Patient: EMS: . External Records Reviewed: Outpatient labs: . Care significantly affected by the following chronic conditions: anemia. 04:28 ED course: Well-appearing and asymptomatic patient presents with anemia on outpatient tt7 labs, has history of chronic anemia, also past history of GI bleed, is not having any symptoms of GI bleeding or any other acute blood loss at this time, abdominal exam totally benign, laboratory workup ordered, no indication for radiographic studies at this time, complete blood count does show a normocytic anemia with hemoglobin of 6.3, will transfuse 1 unit of packed red blood cells, given the patient's stability and no evidence of acute blood loss or any symptoms patient can be discharged after his blood transfusion to follow-up as an outpatient. 07:26 ED course: Patient reassessed after completion of blood transfusion, no evidence of tt7 transfusion reaction, vital signs are stable, patient still well-appearing, was updated on laboratory studies and need for outpatient follow-up with his anemia, emergency department evaluation is reassuring. I do not suspect life-threatening process. Patient is stable and not in need of emergent medical intervention. I had a detailed discussion with the patient regarding the historical points, exam findings, emergency department evaluation, diagnostic results, and the discharge diagnosis. I discussed outpatient management of the patient's condition. I discussed the need for outpatient follow-up with primary care and relevant specialist. I discussed return precautions including the need to return to the ED if symptoms do not improve, worsen, or if there are any questions or concerns that arise at home. The patient was discharged in stable condition. 08/09 00:14 Order name: CBC with Diff; Complete Time: 02:14 08/09 00:14 Order name: CMP; Complete Time: 02:14 08/09 00:14 Order name: Lipase; Complete Time: 02:14 tt08/09 00:14 Order name: Type And Screen tt08/09 00:14 Order name: Ferritin; Complete Time: 02:14 08/09 00:14 Order name: Iron Level 08/09 00:14 Order name: Retic Count; Complete Time: 02:14 08/09 00:14 Order name: TRANSFERRIN SAT/IRON BINDING; Complete Time: 02:14 08/09 00:15 Order name: Lactate w/ 2H reflex if indic.; Complete Time: 02:14 08/09 02:55 Order name: Packed RBCs (Additional Unit) EDAK 08/09 00:14 Order name: IV Saline Lock; Complete Time: 00:40 08/09 00:14 Order name: Labs collected and sent; Complete Time: 00:40 08/09 02:18 Order name: Consent for Blood Transfusion; Complete Time: 07:15 7 08/09 02:18 Order name: IV Saline Lock; Complete Time: 02:28 tt7 Administered Medications: 07:25 Drug: Calcium Gluconate IVPB 2 grams IVPB once over 60 mins; (mix in NS 100 mL) Route: db IVPB; Infused Over: 60 mins; Site: left antecubital; 08:30 Follow up: Response: No adverse reaction; IV Status: Completed infusion; IV Intake: db 100ml Disposition: 07:27 Co-signature as Attending Physician, Acosta Rivas DO. tt7 Disposition Summary: 08/09/25 07:22 Discharge Ordered Notes: Location: Home tt7 Problem: chronic tt7 Symptoms: have improved tt7 Condition: Stable tt7 Diagnosis - ANEMIA REQUIRING TRANSFUSION tt7 Followup: tt7 - With: Emergency Department - When: As needed - Reason: Followup: tt7 - With: Private Physician - When: 1 - 2 days - Reason: Recheck today's complaints, Re-evaluation by your physician Discharge Instructions: - Discharge Summary Sheet tt7 - Anemia tt7 Forms: - Medication Reconciliation Form tt7 - Antibiotic Education tt7 - Prescription Opioid Use tt7 - Patient Portal Instructions tt7 - Leadership Thank You Letter tt7 Signatures: Dispatcher [employer] EDYael Amaral, RN RN Kristal Parker PA-C PAYefri sb4 Amanda Marques RN RN kt5 Acosta Rivas, DO tt7 Corrections: (The following items were deleted from the chart) 06:13 02:18 PACKED RBC LEUKORED+BB.LAB.BRZ ordered. EDMS EDMS 06: 02:21 ABO/RH typing ordered. EDMS EDMS 06:13 02:21 Antibody Screen ordered. EDMS EDMS
[2025-08-09] MEDS ORDERED: CALCIUM GLUCONATE 1 GM IVPB 2 GM/100 ML BAG IV ONE (07:24)
[2025-08-09 11:20] VITALS: O2SAT 100
[2025-08-09 11:33] VITALS: TEMP 98.1
[2025-08-09 11:35] VITALS: BP 147/74
== END 2025-08-09 11:05 | disposition home or self-care (01) ==
LOC: ER 23:57
DX: D64.9 Anemia, unspecified (principal); I10 Essential (primary) hypertension
CPT/HCPCS: 96365; 85025; 36415; 86900; 86850; 85044; 86901; 83605; 86920; 82728; 83690; 83540; 80053; 84466; 99285; J0612; P9016; J7040

== ENCOUNTER 2025-09-17 04:11 | Emergency (ER) | payer OTHER ==
[2025-09-17] MEDS ORDERED: ACETAMINOPHEN 500 MG TAB ONE (04:31)
[2025-09-17] MEDS ORDERED: DIPHENHYDRAMINE 25 MG TAB/CAP ONE (04:32)
[2025-09-17 04:46] LABS: Absolute Lymphocytes (CBC) 1.6 K/uL (0.7-4.9); Hematocrit 20.6 % (39.6-49.0); Hemoglobin 6.4 g/dL (13.6-17.9); MCH 29.3 pg (27.0-35.0); MCHC 31.2 g/dL (32.0-36.0); MCV 94.0 fL (80-100); MPV 7.3 fL (7.6-11.3); Nucleated RBC Absolute Count 0.0 (0-0); Nucleated Red Blood Cells % 0.3 % (0-0); RBC Red Blood Cell Count 2.19 M/uL (4.33-5.43); White Blood Count 3.90 thou/uL (4.3-10.9)
[2025-09-17 05:00] LABS: AST/SGOT 11 U/L (15-37); Albumin 2.7 g/dL (3.4-5.0); Albumin/Globulin Ratio 0.4 (1.1-1.8); Alkaline Phosphatase 65 U/L (45-117); Anion Gap 7.3 mEq/L (5.0-15.0); BUN Blood Urea Nitrogen 18 mg/dL (7-18); Globulin 6.2 g/dL (2.3-3.5); Glucose Level 79 mg/dL (74-106); Potassium 3.3 mEq/L (3.5-5.1)
[2025-09-17 05:02] LABS: ALT/SGPT < 14 U/L (16-61)
[2025-09-17 05:16] LABS: Differential Total Cells Count 100; Segmented Neutrophils 48 % (40-80)
[2025-09-17 05:17] LABS: Anisocytosis 3+; Blood Morphology Comment NOTED (NOT SEEN); Macrocytosis 1+
[2025-09-17] MEDS ORDERED: ONDANSETRON 4 MG (ODT) TAB ONE (05:43)
[2025-09-17] MEDS ORDERED: HYDROCODONE/APAP 10/325 TAB ONE (05:44)
[2025-09-17] MEDS ORDERED: NA CHLORIDE 0.9% 250 ML ONE ×2 (07:40→10:27)
--- NOTE | 2025-09-17 13:05 | EDPHYS ---
Physician Documentation [facility] Name: Rogelio Machado Age: 80 yrs Sex: Male : 1945 Arrival Date: 09/17/2025 Time: 04:11 Bed 3 Private MD: ED Physician Manuel Jacobs HPI: 09/17 04:24 This 80 yrs old Male presents to ER via EMS with complaints of anemia sp4 hemoglobin 6.5. 06:57 Patient is a very pleasant 80-year-old male with history of recurrent anemia. Patient sp4 presents from senior living with no specific complaints however senior living states that patient's hemoglobin was at 6.5 with no routine lab checks.. Patient denied any blood in the stool urine and denied any hematemesis.. Historical: - Allergies: 04:23 No Known Allergies; nh2 - PMHx: 04:23 colon polyp removal; CVA; Hypertension; internal hemorrhoids; Thyroid problem; nh2 - Immunization history:: Adult Immunizations unknown. - Infectious Disease History:: Denies. - Social history:: Smoking status: unknown. - Family history:: not pertinent. ROS: 06:57 Constitutional: Negative for fever, chills, and weight loss, positive for reported sp4 anemia 06:57 All other systems are negative, Exam: 06:57 Constitutional: Frail elderly male, ill-appearing but nontoxic, generalized pallor sp4 Head/Face: Normocephalic, atraumatic. Eyes: Pupils equal round and reactive to light, extra-ocular motions intact. Lids and lashes normal. Conjunctiva and sclera are not injected. Cornea within normal limits. Periorbital areas with no swelling, redness, or edema. ENT: Nares patent. No nasal discharge, no septal abnormalities noted. Tympanic membranes are normal and external auditory canals are clear. Oropharynx with no redness, swelling, or masses, exudates, or evidence of obstruction, uvula midline. Mucous membranes moist. Neck: Trachea midline, no thyromegaly or masses palpated, and no cervical lymphadenopathy. Supple, full range of motion without nuchal rigidity, or vertebral point tenderness. Chest/axilla: Normal chest wall appearance and motion. Nontender with no deformity. No lesions are appreciated. Cardiovascular: Regular rate and rhythm with a normal S1 and S2. No gallops, murmurs, or rubs. No pulse deficits. Respiratory: Lungs have equal breath sounds bilaterally, clear to auscultation and percussion. No rales, rhonchi or wheezes noted. No increased work of breathing, no retractions or nasal flaring. Abdomen/GI: Soft, with normal bowel sounds. No distension or tympany. No guarding or rebound. No evidence of tenderness throughout. Back: No spinal tenderness. No costovertebral tenderness. Skin: Warm, dry with normal turgor. Normal color with no rashes, no lesions, and no evidence of cellulitis. MS/ Extremity: Pulses equal, no cyanosis. Neurovascular intact. Full, normal range of motion. Neuro: Awake and alert, GCS 15, oriented to person, place, time, and situation. Cranial nerves II-XII grossly intact. Motor strength 5/5 in all extremities. Sensory grossly intact. Psych: Awake, alert, with orientation to person, place and time. Behavior, mood, and affect are within normal limits Vital Signs: 04:23 BP 158 / 78; Pulse 51; Resp 14; Temp 97.8(O); Pulse Ox 100% on R/A; Weight 49.44 kg; nh2 Height 6 ft. 0 in. ; Pain 0/10; 05:20 BP 168 / 75; Pulse 56; Resp 16; Pulse Ox 100% on R/A; nh2 06:15 BP 158 / 88; Pulse 57; Resp 16; Pulse Ox 100% on R/A; nh2 06:38 BP 164 / 67; Pulse 55; Resp 16; Pulse Ox 100% on R/A; nh2 07:05 BP 113 / 66; Pulse 56; Resp 12; Temp 97.4; Pulse Ox 100% on R/A; zm 08:30 BP 152 / 61; Pulse 46; Resp 11; Temp 97.1; Pulse Ox 100% on R/A; zm 09:30 BP 163 / 73; Pulse 45; Resp 12; Temp 97.1; Pulse Ox 100% on R/A; zm 10:30 BP 139 / 77; Pulse 46; Resp 12; Temp 97.1; Pulse Ox 100% on R/A; cm10 11:30 BP 160 / 58; Pulse 47; Resp 12; Temp 97.1; Pulse Ox 100% on R/A; zm 13:38 BP 163 / 98; Pulse 47; Resp 12; Temp 97.3; Pulse Ox 100% on R/A; Pain 0/10; zm 04:23 Body Mass Index 14.78 (49.44 kg, 182.88 cm) nh2 04:23 Pain Scale: Adult nh2 13:38 Pain Scale: Adult zm [place] Coma Score: 04:24 Eye Response: spontaneous(4). Verbal Response: oriented(5). Motor Response: obeys mf3 commands(6). Total: 15. 06:57 Eye Response: spontaneous(4). Verbal Response: oriented(5). Motor Response: obeys sp4 commands(6). Total: 15. 13:38 Eye Response: spontaneous(4). Verbal Response: oriented(5). Motor Response: obeys zm commands(6). Total: 15. MDM: 04:26 Medical Screening Exam initiated sp4 06:57 Differential Diagnosis altered mental status, sepsis, flu. Data reviewed: vital signs, sp4 nurses notes, EMS record, senior living records, old medical records, lab test result(s). Consideration of Admission/Observation Escalation of care including admission/observation considered. 07:06 Management of patient was discussed with the following: Discussed with oncoming ED sp4 attending. Transition of care: After a detail discussion of the patient's case, care is transferred to Manuel Jacobs DO. 07:15 Transition of care: Care assumed from Leo Tan MD. ms3 09/17 04:25 Order name: Type And Screen sp4 09/17 04:24 Order name: CBC with Diff; Complete Time: 05:29 sp4 09/17 04:24 Order name: CMP; Complete Time: 05:29 sp4 09/17 04:41 Order name: Packed RBC Leukored EDMS 09/17 04:55 Order name: Manual Differential; Complete Time: 05: EDMS 09/17 04:24 Order name: IV Saline Lock; Complete Time: 04:36 sp4 09/17 04:24 Order name: Labs collected and sent; Complete Time: 04:36 sp4 Administered Medications: 04:35 Drug: Acetaminophen PO 1000 mg PO once Route: PO; nh2 05:31 Follow up: Response: No adverse reaction nh2 04:36 Drug: diphenhydrAMINE PO 50 mg PO once Route: PO; nh2 05:31 Follow up: Response: No adverse reaction nh2 05:46 Drug: [place] PO 10 mg-325 mg 1 tabs PO once Route: PO; nh2 06:11 Follow up: Response: No adverse reaction; Pain is decreased; RASS: Alert and Calm (0) nh2 05:46 Drug: Ondansetron PO 4 mg PO once Route: PO; nh2 06:11 Follow up: Response: No adverse reaction nh2 Disposition: 23:52 Chart complete. sp4 Disposition Summary: 09/17/25 13:04 Discharge Ordered Notes: Location: Home ms3 Condition: Stable ms3 Diagnosis - Anemia, unspecified ms3 - Essential (primary) hypertension ms3 Followup: ms3 - With: Private Physician - When: 2 - 3 days - Reason: Re-evaluation by your physician Discharge Instructions: - Discharge Summary Sheet ms3 - Anemia ms3 - Blood Transfusion, Adult ms3 - Hypertension, Adult ms3 Forms: - Medication Reconciliation Form ms3 - Antibiotic Education ms3 - Prescription Opioid Use ms3 - Patient Portal Instructions ms3 - Leadership Thank You Letter ms3 Signatures: Dispatcher [employer] EDMS Manuel Jacobs DO DO ms3 Leo Tan MD MD sp4 Sukumar Dodson Jr RN RN nh2 Corrections: (The following items were deleted from the chart) 04:24 04:24 CBC+H.LAB.BRZ ordered. EDMS EDMS 04:24 04:24 COMPREHENSIVE METABOLIC PANEL+C.LAB.BRZ ordered. EDMS EDMS 04:26 04:26 TYPE AND SCREEN+BB.LAB.BRZ ordered. EDMS EDMS 04:41 04:26 PACKED RBC LEUKORED+BB.LAB.BRZ ordered. EDMS EDMS 04:41 04:28 ABO/RH typing ordered. EDMS EDMS 04:41 04:28 Antibody Screen ordered. EDMS EDMS
--- NOTE | 2025-09-17 13:05 | ER ---
Nurse's Notes [facility] Name: Rogelio Machado Age: 80 yrs Sex: Male : 1945 Arrival Date: 09/17/2025 Time: 04:11 Bed 3 Private MD: Diagnosis: Anemia, unspecified;Essential (primary) hypertension Presentation: 09/17 04:22 Chief complaint: EMS states: sent from skilled nursing for hemoglobin of 6.5. Coronavirus nh2 screen: Client denies travel out of the [place] in the last 14 days. At this time, the client does not indicate any symptoms associated with coronavirus-19. Ebola Screen: Patient denies travel to an Ebola-affected area in the 21 days before illness onset. No symptoms or risks identified at this time. Initial Sepsis Screen: Does the patient meet any 2 criteria? No. Patient's initial sepsis screen is negative. Does the patient have a suspected source of infection? No. Patient's initial sepsis screen is negative. Risk Assessment: Do you want to hurt yourself or someone else? Patient reports no desire to harm self or others. Onset of symptoms was September 17, 2025. 04:22 Method Of Arrival: EMS: [facility] nh2 04:22 Acuity: [place] 3 nh2 Triage Assessment: 04:23 General: Appears in no apparent distress. Behavior is calm, cooperative, appropriate nh2 for age. Pain: Denies pain. EENT: No signs and/or symptoms were reported regarding the EENT system. Neuro: Level of Consciousness is awake, alert, obeys commands, Oriented to person, place, time. Cardiovascular: Patient's skin is warm and dry. Rhythm is sinus rhythm. Respiratory: Respiratory effort is even, unlabored, Denies cough, shortness of breath. GI: Abdomen is flat, non-distended. : No signs and/or symptoms were reported regarding the genitourinary system. Derm: Skin is dry, Skin is pale. Musculoskeletal: Circulation, motion, and sensation intact. Range of motion: intact in all extremities. Historical: - Allergies: : No Known Allergies; nh2 - PMHx: : colon polyp removal; CVA; Hypertension; internal hemorrhoids; Thyroid problem; nh2 - Immunization history:: Adult Immunizations unknown. - Infectious Disease History:: Denies. - Social history:: Smoking status: unknown. - Family history:: not pertinent. Screenin:24 [facility] ED Fall Risk Assessment (Adult) History of falling in the last 3 months, mf3 including since admission No falls in past 3 months (0 pts) Confusion or Disorientation No (0 pts) Intoxicated or Sedated No (0 pts) Impaired Gait No (0 pts) Mobility Assist Device Used No (0 pt) Altered Elimination No (0 pt) Score/Fall Risk Level 0 - 2 = Low Risk Oriented to surroundings, Maintained a safe environment. Abuse screen: Denies threats or abuse. Denies injuries from another. Nutritional screening: No deficits noted. Tuberculosis screening: No symptoms or risk factors identified. Never had TB. Assessment: 04:24 General: Appears in no apparent distress. comfortable, Behavior is calm, cooperative, mf3 appropriate for age. Pain: Denies pain. Neuro: Level of Consciousness is awake, alert, obeys commands, Oriented to person, place, time, situation, Appropriate for age. Cardiovascular: Capillary refill < 3 seconds. Respiratory: Airway is patent. GI: Abd is soft and non tender. GI: Abdomen is flat. : No signs and/or symptoms were reported regarding the genitourinary system. Derm: Skin is intact. Musculoskeletal: Range of motion: intact in all extremities. 05:15 Reassessment: Patient and/or family updated on plan of care and expected duration. Pain nh2 level reassessed. Patient is alert, oriented x 3, equal unlabored respirations, skin warm/dry/pink. 05:30 Reassessment: pt now appears restless despite comfort measures such as providing warm nh2 blankets. c/o of new onset of generalized back and neck pain, MD notified. 06:00 Reassessment: Patient and/or family updated on plan of care and expected duration. Pain nh2 level reassessed. Patient is alert, oriented x 3, equal unlabored respirations, skin warm/dry/pink. Patient states symptoms have improved. 06:30 Reassessment: Patient and/or family updated on plan of care and expected duration. Pain nh2 level reassessed. Patient is alert, oriented x 3, equal unlabored respirations, skin warm/dry/pink. Patient states feeling better. 07:05 Reassessment: resting with eyes closed. General: Appears in no apparent distress. zm comfortable. Respiratory: Airway is patent Respiratory effort is even, unlabored, Respiratory pattern is regular, symmetrical. 07:40 Reassessment: Patient appears in no apparent distress at this time. Patient and/or zm family updated on plan of care and expected duration. Pain level reassessed. Patient is alert, oriented x 3, equal unlabored respirations, skin warm/dry/pink. Patient denies pain at this time. 07:40 Neuro: Level of Consciousness is awake, alert, obeys commands, Oriented to person, zm place, time, situation. Cardiovascular: Murmur present Patient's skin is warm and dry. Respiratory: Airway is patent Respiratory effort is even, unlabored, Respiratory pattern is regular, symmetrical, Breath sounds are clear bilaterally. in right upper lobe, left upper lobe, left lower lobe and right lower lobe. Derm: Skin is intact. 07:45 Reassessment: Blood Consent Form signed. zm 08:15 Reassessment: 1 unit PRBCs started, see transfusion record. zm 08:30 Reassessment: pt tolerating transfusion well, will increase rate from 75 ml/hr to 125 zm ml/hr. 09:30 Reassessment: pt continues to tolerate transfusion well, will increase rate from 125 zm ml/hr to 200 ml/hr. 09:42 Reassessment: Patient appears in no apparent distress at this time. resting with eyes zm closed, respirations even and unlabored, chest rise and fall equal and symmetrical. 10:30 Reassessment: first unit of PRBCs completed, pt tolerated well, no s/s of transfusion zm reaction. 10:40 Reassessment: Patient appears in no apparent distress at this time. No changes from previously documented assessment. 10:45 Reassessment: second unit of PRBCs started, see transfusion record. zm 11:00 Reassessment: pt tolerating transfusion well, will increase rate from 75 ml/hr to 125 zm ml/hr. 11:15 Reassessment: pt continues to tolerate transfusion well, will increase rate from 125 zm ml/hr to 200 ml/hr. 12:35 Reassessment: second unit PRBCs completed, pt tolerated well, no s/s of transfusion zm reaction. 13:12 General: [facility] contacted at this time. Nicole states that they will set up 10 transport and call back with ETA.. 13:24 Reassessment: ETA FOR EMS 30 minutes. cm10 Vital Signs: 04:23 BP 158 / 78; Pulse 51; Resp 14; Temp 97.8(O); Pulse Ox 100% on R/A; Weight 49.44 kg; nh2 Height 6 ft. 0 in. ; Pain 0/10; 05:20 BP 168 / 75; Pulse 56; Resp 16; Pulse Ox 100% on R/A; nh2 06:15 BP 158 / 88; Pulse 57; Resp 16; Pulse Ox 100% on R/A; nh2 06:38 BP 164 / 67; Pulse 55; Resp 16; Pulse Ox 100% on R/A; nh2 07:05 BP 113 / 66; Pulse 56; Resp 12; Temp 97.4; Pulse Ox 100% on R/A; zm 08:30 BP 152 / 61; Pulse 46; Resp 11; Temp 97.1; Pulse Ox 100% on R/A; zm 09:30 BP 163 / 73; Pulse 45; Resp 12; Temp 97.1; Pulse Ox 100% on R/A; zm 10:30 BP 139 / 77; Pulse 46; Resp 12; Temp 97.1; Pulse Ox 100% on R/A; cm10 11:30 BP 160 / 58; Pulse 47; Resp 12; Temp 97.1; Pulse Ox 100% on R/A; zm 13:38 BP 163 / 98; Pulse 47; Resp 12; Temp 97.3; Pulse Ox 100% on R/A; Pain 0/10; zm 04:23 Body Mass Index 14.78 (49.44 kg, 182.88 cm) nh2 04:23 Pain Scale: Adult nh2 13:38 Pain Scale: Adult zm Lisa Coma Score: 04:24 Eye Response: spontaneous(4). Verbal Response: oriented(5). Motor Response: obeys mf3 commands(6). Total: 15. 06:57 Eye Response: spontaneous(4). Verbal Response: oriented(5). Motor Response: obeys sp4 commands(6). Total: 15. 13:38 Eye Response: spontaneous(4). Verbal Response: oriented(5). Motor Response: obeys zm commands(6). Total: 15. ED Course: 04:15 Patient arrived in ED. rv1 04:23 Triage completed. nh2 04:23 Leo Tan MD is Attending Physician. sp4 04:24 Faggart, Yue, RN is Primary Nurse. mf3 04:24 Placed in gown. Bed in low position. Call light in reach. Side rails up X2. Provided 3 Education on: pt educated on POC. 04:28 Arm band placed on right wrist. nh2 04:28 Inserted saline lock: 22 gauge in left forearm, using aseptic technique. nh2 04:29 Patient has correct armband on for positive identification. Bed in low position. Call nh2 light in reach. Side rails up X 1. Provided Education on: care plan for today's visit. 04:29 Inserted saline lock: 20 gauge in right forearm, using aseptic technique. nh2 04:29 No provider procedures requiring assistance completed. nh2 07:00 Report received from BRITTNI Patino. zm 07:13 Attending Physician role handed off by Leo Tan MD ms3 07:13 Manuel Jacobs DO is Attending Physician. ms3 07:19 Skylar Cruz RN is Primary Nurse. cm10 13:39 IV discontinued, intact, bleeding controlled, No redness/swelling at site. Pressure zm dressing applied. Administered Medications: 04:35 Drug: Acetaminophen PO 1000 mg PO once Route: PO; nh2 05:31 Follow up: Response: No adverse reaction nh2 04:36 Drug: diphenhydrAMINE PO 50 mg PO once Route: PO; nh2 05:31 Follow up: Response: No adverse reaction nh2 05:46 Drug: [place] PO 10 mg-325 mg 1 tabs PO once Route: PO; nh2 06:11 Follow up: Response: No adverse reaction; Pain is decreased; RASS: Alert and Calm (0) nh2 05:46 Drug: Ondansetron PO 4 mg PO once Route: PO; nh2 06:11 Follow up: Response: No adverse reaction nh2 Medication: 04:24 VIS not applicable for this client. 3 Outcome: 13:04 Discharge ordered by . ms3 14:11 Discharged to skilled nursing. 14:11 Condition: stable 14:11 Discharge instructions given to skilled nursing, Instructed on discharge instructions, follow up and referral plans. Demonstrated understanding of instructions, follow-up care, 14:12 Patient left the ED. Signatures: Manuel Jacobs DO DO ms3 Skylar Cruz RN RN Abbie Lazar 1 Leo Tan MD MD sp4 Tiffanie Cruz RN RN cm10 Sukumar Dodson Jr RN RN nh2 Yue Higuera RN RN mf3 Corrections: (The following items were deleted from the chart) 08:31 07:05 General: Appears in no apparent distress. comfortable, zm zm : 10:30 Reassessment: first unit of PRBCs completed, pt tolerated well, no s/s of cm10 transfusion reaction cm10 : 08:30 Reassessment: pt tolerating transfusion well, will increase rate from 75 ml/hr to cm10 125 ml/hr cm10 : 09:30 Reassessment: pt continues to tolerate transfusion well, will increase rate from cm10 125 ml/hr to 200 ml/hr cm10 11: 10:45 Reassessment: second unit PRBCs started, see transfusion record cm10 cm10 : 10:40 Reassessment: Patient appears in no apparent distress at this time. No changes cm10 from previously documented assessment. cm10
[2025-09-17 14:17] VITALS: O2SAT 100
[2025-09-17 14:29] VITALS: BP 163/98; TEMP 97.3
== END 2025-09-17 14:12 | disposition home or self-care (01) ==
LOC: ER 04:11
PROC: 30233N1 Transfusion of Nonautologous Red Blood Cells into Peripheral Vein, Percutaneous Approach (ICD-10-PCS; principal; 2025-09-17)
DX: D64.9 Anemia, unspecified (principal); I10 Essential (primary) hypertension
CPT/HCPCS: 85025; 36415; 86900; 86850; 86901; 86920 ×2; 80053; 99284; 36430; Q0162; P9016 ×2; J7050 ×2